=== PATIENT | male | born 1970 | race Hispanic/Latino ===

== ENCOUNTER 2017-03-26 17:19 | Observation (INO) | payer OTHER ==
[2017-03-26] MEDS ORDERED: Sodium Chloride 0.9% 1,000 ML IV STA ×2 (17:49→22:19)
--- NOTE | 2017-03-26 17:54 | ED PDOC ---
HPI: Chest Pain Time Seen by Provider: 03/26/17 17:36 Chief Complaint (Nursing): Palpitations Chief Complaint (Provider): Chest pain History Per: Patient History/Exam Limitations: no limitations Onset/Duration Of Symptoms: Days (today 3pm) Current Symptoms Are (Timing): Still Present Additional Complaint(s): Pt. with left upper chest pain going to shoulder with palpitations. No numbness , tingles, weakness. Started while at work. Went home and took an ASA. Currently no pain. No dyspnea. No leg pain, long distance travel, or hormone use. No drugs or etoh. Drinks coffee 1-2 cups in the morning. Past Medical History Reviewed: Nursing Documentation, Vital Signs Vital Signs: Last Vital Signs Temp 98.1 F 03/26/17 17:31 Pulse 136 H 03/26/17 17:31 Resp 19 03/26/17 17:31 BP 162/103 H 03/26/17 17:31 Pulse Ox 100 03/26/17 17:55 - Medical History PMH: No Chronic Diseases - Surgical History Surgical History: No Surg Hx - Family History Family History: States: Unknown Family Hx - Allergies Allergies/Adverse Reactions: Allergies Allergy/AdvReac Type Severity Reaction Status Date / Time No Known Allergies Allergy Verified 03/26/17 17:35 Review of Systems ROS Statement: Except As Marked, All Systems Reviewed And Found Negative Cardiovascular: Positive for: Chest Pain, Palpitations Physical Exam - Reviewed Nursing Documentation Reviewed: Yes Vital Signs Reviewed: Yes - Physical Exam Appears: Positive for: Non-toxic, No Acute Distress Head Exam: Positive for: ATRAUMATIC, NORMAL INSPECTION, NORMOCEPHALIC Skin: Positive for: Normal Color, Warm, DRY Eye Exam: Positive for: EOMI, Normal appearance, PERRL ENT: Positive for: Normal ENT Inspection Neck: Positive for: Normal, Painless ROM Cardiovascular/Chest: Positive for: Regular Rate, Rhythm, Chest Non Tender. Negative for: Edema Respiratory: Positive for: CNT, Normal Breath Sounds Gastrointestinal/Abdominal: Positive for: Normal Exam, Bowel Sounds, Soft. Negative for: Tenderness Back: Positive for: Normal Inspection. Negative for: L CVA Tenderness, R CVA Tenderness Extremity: Positive for: Normal ROM. Negative for: Tenderness, Pedal Edema Neurologic/Psych: Positive for: Alert, Oriented - Laboratory Results Result Diagrams: 02/07/18 18:14 - ECG ECG: Positive for: Interpreted By Me, Viewed By Me ECG Rhythm: Positive for: Normal QRS, Sinus Tachycardia O2 Sat by Pulse Oximetry: 100 Pulse Ox Interpretation: Normal - Radiology X-Ray: Read By Radiologist X-Ray Interpretation: No Acute Disease - Progress ED Course And Treament: 1842: Stable. AAOx3. Dr. Pederson to take over care. Fu on labs. Disposition - Clinical Impression Clinical Impression: Palpitation, Chest pain - Patient ED Disposition Is Patient to be Admitted: Transfer of Care - Disposition Disposition Time: 18:43 Condition: STABLE Forms: [employer] ([place]) Patient Signed Over To: Sin Pederson
--- NOTE | 2017-03-26 18:25 | RAD ---
HISTORY: chest pain COMPARISON: No prior. FINDINGS: LUNGS: No active pulmonary disease. PLEURA: No significant pleural effusion identified, no pneumothorax apparent. CARDIOVASCULAR: Normal. OSSEOUS STRUCTURES: No significant abnormalities. VISUALIZED UPPER ABDOMEN: Normal. OTHER FINDINGS: None. IMPRESSION: No active disease.
[2017-03-26 18:44] LABS: ALB/GLOB RATIO 1.2 (1.0-2.1); ALBUMIN 4.6 g/dL (3.5-5.0); ALT/SGPT 79 U/L (21-72); AST/SGOT 46 U/L (17-59); BLOOD UREA NITROGEN 11 mg/dl (9-20); CALCIUM 9.3 mg/dL (8.4-10.2); GFR AFRICAN-AMERICAN > 60; GFR NON-AFRICAN AMERICAN > 60
[2017-03-26 18:46] LABS: BASO # 0.1 K/uL (0.0-0.2); BASO % 0.6 % (0.0-2.0); EOS # 0.1 K/uL (0.0-0.7); EOS % 1.1 % (0.0-4.0); HEMOGLOBIN 15.9 g/dL (12.0-18.0); LYMPH # 3.1 K/uL (1.0-4.3); LYMPH % 29.1 % (20.0-40.0); MEAN CELL VOLUME 88.9 fl (80.0-94.0); MEAN CORPUSCULAR HEMOGLOBIN 30.4 pg (27.0-31.0); MEAN CORPUSCULAR HGB CONC 34.2 g/dL (33.0-37.0); MEAN PLATELET VOLUME 9.3 fl (7.2-11.7); MONO # 0.6 K/uL (0.0-0.8); NEUT # 6.7 K/uL (1.8-7.0); NEUT % 63.2 % (50.0-75.0); NRBC % 0.1 % (0.0-0.0); RBC 5.24 Mil/uL (4.40-5.90); WHITE BLOOD COUNT 10.6 K/uL (4.8-10.8)
[2017-03-26 18:50] LABS: INR 0.9 (0.9-1.2); PARTIAL THROMBOPLASTIN TIME 28.5 Seconds (25.6-37.1); PROTHROMBIN TIME 10.4 Seconds (9.8-13.1)
[2017-03-26] MEDS ORDERED: Potassium Chloride 20 mEq ER Tab PO ONE (18:53)
[2017-03-26] MEDS ORDERED: Iodixanol 320 MG/ML 100 ML BOTTLE IV ONE (19:34)
[2017-03-26] MEDS ORDERED: Sodium Chloride 0.9% 50 ML IV ONE (19:34)
[2017-03-26 19:57] LABS: BARBITURATES, UR NEGATIVE (NEGATIVE); BENZODIAZEPINES, UR NEGATIVE (NEGATIVE); OPIATES, UR NEGATIVE (NEGATIVE); PHENCYCLIDINE, UR NEGATIVE (NEGATIVE)
--- NOTE | 2017-03-26 21:30 | ED PDOC ---
- Laboratory Results Result Diagrams: 03/26/17 18:14 03/27/17 02:07 - ECG O2 Sat by Pulse Oximetry: 100 (RA) Pulse Ox Interpretation: Normal Medical Decision Making Medical Decision Making: Time: 19:00 Patient signed out to me by CT scan Time: 21:50 FINDINGS: Limitations: Suboptimal opacification of the pulmonary arteries. Pulmonary arteries: No central or segmental pulmonary embolism. Remaining pulmonary arteries are not sufficiently opacified to evaluate for PE. Aorta: No acute findings. No thoracic aortic aneurysm. Lungs: Mild interstitial infiltrates in the lower lungs which may be due to edema. Atelectasis posterior lungs. No mass. Pleural space: Unremarkable. No significant effusion. No pneumothorax. Heart: Unremarkable. No cardiomegaly. No significant pericardial effusion. No evidence of RV dysfunction. Bones/joints: No acute fracture. No dislocation. Soft tissues: Unremarkable. Lymph nodes: Unremarkable. No enlarged lymph nodes. IMPRESSION: 1. No central or segmental pulmonary embolism. Remaining pulmonary arteries are not sufficiently opacified to evaluate for PE. 2. Mild interstitial infiltrates in the lower lungs which may be due to edema. 2200 Patient is still persistently tachycardic despite IVF. Will continue IV hydration, benzos for possible anxiety and admit for tachycardia. Documented by Julius Rainey acting as a scribe for Sin Pederson MD. All medical record entries made by the Scribe were at my direction and personally dictated by me. I have reviewed the chart and agree that the record accurately reflects my personal performance of the history, physical exam, medical decision making, and the department course for this patient. I have also personally directed, reviewed, and agree with the discharge instructions and disposition. Disposition - Clinical Impression Clinical Impression: Palpitation, Chest pain, Tachycardia - POA Present On Arrival: None - Disposition Disposition: Hospitalized as Observation Patient Disposition Time: 22:00 Condition: STABLE
[2017-03-26] MEDS ORDERED: Sodium Chloride 0.9% 1,000 ML IV SCH (23:45)
[2017-03-27 02:36] LABS: ALB/GLOB RATIO 1.1 (1.0-2.1); ALT/SGPT 68 U/L (21-72); AST/SGOT 34 U/L (17-59); BLOOD UREA NITROGEN 10 mg/dl (9-20); CALCIUM 8.7 mg/dL (8.4-10.2); GFR AFRICAN-AMERICAN > 60; GFR NON-AFRICAN AMERICAN > 60
[2017-03-27 06:23] LABS: HEMOGLOBIN 14.5 g/dL (12.0-18.0); MEAN CELL VOLUME 88.6 fl (80.0-94.0); MEAN CORPUSCULAR HEMOGLOBIN 30.3 pg (27.0-31.0); MEAN CORPUSCULAR HGB CONC 34.2 g/dL (33.0-37.0); RBC 4.78 Mil/uL (4.40-5.90); RED CELL DISTRIBUTION WIDTH 13.7 % (11.5-14.5); WHITE BLOOD COUNT 11.1 K/uL (4.8-10.8)
--- NOTE | 2017-03-27 09:19 | CT ---
PROCEDURE: CT Chest with contrast (Pulmonary Angiogram) HISTORY: chest pain COMPARISON: None available. TECHNIQUE: Axial computed tomography images were obtained of the chest in the pulmonary arterial phase of enhancement. Coronal and sagittal reformatted images were created and reviewed. Intravenous contrast dose: 75 mL Visipaque 320 Radiation dose: Total exam DLP = 417.9 mGy-cm. This CT exam was performed using one or more of the following dose reduction techniques: Automated exposure control, adjustment of the mA and/or kV according to patient size, and/or use of iterative reconstruction technique. FINDINGS: PULMONARY ARTERIES: Suboptimal opacification. No central pulmonary embolism. AORTA: No acute findings. No thoracic aortic aneurysm. LUNGS: Bibasilar atelectasis. Right middle lobe 4 mm nodule (series 5, image 43). No mass or pulmonary consolidation. PLEURAL SPACES: Unremarkable. No effusion or pneumothorax. HEART: Unremarkable. No cardiomegaly. No significant pericardial effusion. LYMPH NODES: No lymphadenopathy. BONES, CHEST WALL: Unremarkable. No fracture or destructive lesion OTHER FINDINGS: Unremarkable. IMPRESSION: Suboptimal opacification of the pulmonary arteries. No central pulmonary embolus.
[2017-03-27] MEDS: Pantoprazole 40 mg EC Tab PO SCH (09:22)
[2017-03-27] MEDS: Enoxaparin 40 mg Syringe SC SCH (09:22)
--- NOTE | 2017-03-27 11:24 | CARD ---
APPROVED REPORT EKG Measurement Heart [id number] <Conclusion> Sinus tachycardia Otherwise normal ECG
--- NOTE | 2017-03-27 12:36 | CARD ---
APPROVED REPORT EXAM: Two-dimensional and M-mode echocardiogram with Doppler and color Doppler. Other Information Quality : AverageRhythm : Tachycardia INDICATION Abnormal EKG/Arrhythmia 2D DIMENSIONS IVSd1.09 (0.7-1.1cm)LVDd4.37 (3.9-5.9cm) LVOT Diameter2.06 (1.8-2.4cm)PWd1.02 (0.7-1.1cm) IVSs1.40 (0.8-1.2cm)LVDs3.17 (2.5-4.0cm) FS (%) 27.5 %PWs1.18 (0.8-1.2cm) M-Mode DIMENSIONS Left Atrium (MM)4.06 (2.5-4.0cm)IVSd0.71 (0.7-1.1cm) Aortic Root3.44 (2.2-3.7cm)LVDd5.24 (4.0-5.6cm) Aortic Cusp Exc.2.32 (1.5-2.0cm)PWd1.00 (0.7-1.1cm) IVSs1.74 cmFS (%) 48 % LVDs2.71 (2.0-3.8cm)PWs1.21 cm Mitral Valve E/A ratio0.0 TDI E/Lateral E'0.0E/Medial E'0.0 Pulmonary Valve PV Peak Alzfofge56.6cm/s LEFT VENTRICLE The left ventricle is normal size. There is normal left ventricular wall thickness. The left ventricular function is normal. The left ventricular ejection fraction is within the normal range. The Ejection Fraction is 60-65%. There is normal LV segmental wall motion. The left ventricular diastolic function is normal. RIGHT VENTRICLE The right ventricle is normal size. The right ventricular systolic function is normal. ATRIA The left atrium size is normal. The right atrium size is normal. AORTIC VALVE The aortic valve is normal in structure. No aortic regurgitation is present. There is no aortic valvular stenosis. MITRAL VALVE The mitral valve is normal in structure. There is no mitral valve stenosis. There is no mitral valve regurgitation noted. TRICUSPID VALVE The tricuspid valve is normal in structure. There is no tricuspid valve regurgitation noted. There is no tricuspid valve stenosis. PULMONIC VALVE The pulmonary valve is normal in structure. There is no pulmonic valvular regurgitation. GREAT VESSELS The aortic root is normal in size. The IVC is normal in size and collapses >50% with inspiration. PERICARDIAL EFFUSION The pericardium appears normal. <Conclusion> The left ventricle is normal size. The left ventricular function is normal. The left ventricular ejection fraction is within the normal range. The Ejection Fraction is 60-65%.
--- NOTE | 2017-03-27 17:25 | CP.PCM.CON ---
History of Present Illness - History of Present Illness History of Present Illness: 46 YO WITH 30 MIN OF CHEST PRESSURE YESTERDAY. HE DIDNT NOTICE ANY EXAC OR RELIEVING FACTORS. PAIN WENT AWAY ON ITS OWN. NO SOB, NO RADIATION, NO N/V, NO F/C/D/C, NO PALP, NO DIZZINESS, NO FAM HX OF SCD. NO PERSONAL HX OF ARRYTHMIAS. PT STATES HE IS OUT OF SHAPE AND DOES GET MILD GUIDRY WHEN AMBULATING. HE ALSO ADMITS TO INCREASED STRESS AT WORK. PTS CP WAS 4/10 AND HAS NOT RETURNED. HE HAS BEEN TACHYCARDIC ON TELE SINCE ADMISSION. Review of Systems - Constitutional Constitutional: As Per HPI. absent: Anorexia, Chills, Daytime Sleepiness, Excessive Sweating, Fatigue, Fever, Frequent Falls, Headache, Increased Appetite , Lethargy, Malaise, Night Sweats, Snoring, Sleep Apnea, Weight Gain, Weight Loss, Weakness, Other - EENT Eyes: As Per HPI. absent: Blind Spots, Blurred Vision, Change in Vision, Decreased Night Vision, Diplopia, Discharge, Dry Eye, Exophthalmos, Floaters, Irritation, Itchy Eyes, Loss of Peripheral Vision, Pain, Photophobia, Requires Corrective Lenses, Sees Flashes, Spots in Vision, Tunnel Vision, Other Visual Disturbances, Loss of Vision, Other Ears: As Per HPI. absent: Decreased Hearing, Ear Discharge, Ear Pain, Tinnitus , Abnormal Hearing, Disequilibrium, Dizziness, Other Nose/Mouth/Throat: As Per HPI. absent: Epistaxis, Nasal Congestion, Nasal Discharge, Nasal Obstruction, Nasal Trauma, Nose Pain, Post Nasal Drip, Sinus Pain, Sinus Pressure, Bleeding Gums, Change in Voice, Dental Pain, Dry Mouth, Dysphagia, Halitosis, Hoarsness, Lip Swelling, Mouth Lesions, Mouth Pain, Odynophagia, Sore Throat, Throat Swelling, Tongue Swelling, Facial Pain, Neck Pain, Neck Mass, Other - Cardiovascular Cardiovascular: As Per HPI, Chest Pain at Rest, Dyspnea on Exertion, Rapid Heart Rate. absent: Acrocyanosis, Chest Pain, Chest Pain with Activity, Claudication, Diaphoresis, Dyspnea, Edema, Irregular Heart Rhythm, Pain Radiating to Arm/Neck/Jaw, Leg Edema, Leg Ulcers, Lightheadedness, Orthopnea, Palpitations, Paroxysmal Nocturnal Dyspnea, Pedal Edema, Radiating Pain, Slow Heart Rate, Syncope, Other - Respiratory Respiratory: As Per HPI. absent: Cough, Dyspnea, Hemoptysis, Dyspnea on Exertion, Wheezing, Snoring, Stridor, Pain on Inspiration, Chest Congestion, Excessive Mucous Production, Change in Mucous Color, Pain with Coughing, Other - Gastrointestinal Gastrointestinal: As Per HPI. absent: Abdominal Pain, Belching, Bloating, Change in Bowel Habits, Change in Stool Character, Coffee Ground Emesis, Constipation, Cramping, Diarrhea, Dyspepsia, Dysphagia, Early Satiety, Excessive Flatus, Fecal Incontinence, Heartburn, Hematemesis, Hematochezia, Loose Stools, Melena, Nausea, Odynophagia, Temesmus, Vomiting, Other - Genitourinary Genitourinary: As Per HPI. absent: Change in Urinary Stream, Difficulty Urinating, Dysuria, Flank Pain, Hematuria, Pyuria, Nocturia, Urinary Incontinence, Urinary Frequency, Urinary Hesitance, Urinary Urgency, Voiding Freq/Small Amts, Freq UTI, Hx Renal/Bladder Calculi, Hx /Renal Surgery, Bladder Distension, Other - Reproductive: Male Reproductive:Male: As Per HPI - Musculoskeletal Musculoskeletal: As Per HPI. absent: Abnormal Gait, Arthralgias, Atrophy, Back Pain, Deformity, Joint Swelling, Limited Range of Motion, Loss of Height, Muscle Cramps, Muscle Weakness, Myalgias, Neck Pain, Numbness, Radiating Pain into Limb, Stiffness, Tingling, Other - Integumentary Integumentary: As Per HPI. absent: Acne, Alopecia, Bleeding Lesions, Change in Hair, Change in Nails, Change in Pigmentation, Changing Lesions, Dry Skin, Erythema, Furuncle, Hirsutism, Lesions, New Lesions, Non-Healing Lesions, Photosensitivity, Pruritus, Rash, Skin Pain, Skin Ulcer, Sores, Striae, Swelling , Unusual Bruising, Wounds, Jaundice, Other Past Patient History - Infectious Disease Hx of Infectious Diseases: None - Past Medical History & Family History Past Medical History?: No - Past Social History Smoking Status: Never Smoked Chewing Tobacco Use: No Cigar Use: No Alcohol: Occasional Drugs: Denies Home Situation {Lives}: With Family Domestic Violence: Negative - CARDIAC Hx Cardiac Disorders: No - PULMONARY Hx Respiratory Disorders: No - NEUROLOGICAL Hx Neurological Disorder: No - HEENT Hx HEENT Problems: No - RENAL Hx Chronic Kidney Disease: No - ENDOCRINE/METABOLIC Hx Endocrine Disorders: No - HEMATOLOGICAL/ONCOLOGICAL Hx Blood Disorders: No - INTEGUMENTARY Hx Dermatological Problems: No - MUSCULOSKELETAL/RHEUMATOLOGICAL Hx Falls: No - GENITOURINARY/GYNECOLOGICAL Hx Genitourinary Disorders: No - PSYCHIATRIC Hx Substance Use: No - SURGICAL HISTORY Hx Surgeries: No - ANESTHESIA Hx Anesthesia: No Hx Anesthesia Reactions: No Hx Malignant Hyperthermia: No Has any member of the family had a problem w/ anesthesia?: No Meds Allergies/Adverse Reactions: Allergies Allergy/AdvReac Type Severity Reaction Status Date / Time No Known Allergies Allergy Verified 03/26/17 17:35 - Medications Medications: Current Medications Enoxaparin Sodium (Lovenox) 40 mg SC DAILY [facility] PRN Reason: Protocol Last Admin: 03/27/17 09:22 Dose: 40 mg Pantoprazole Sodium (Protonix Ec Tab) 40 mg PO DAILY [facility] Last Admin: 03/27/17 09:22 Dose: 40 mg Physical Exam - Constitutional Appears: Non-toxic - Head Exam Head Exam: ATRAUMATIC, NORMAL INSPECTION, NORMOCEPHALIC - Eye Exam Eye Exam: EOMI, Normal appearance, PERRL. absent: Conjunctival injection, Nystagmus, Periorbital swelling, Periorbital tenderness, Scleral icterus Pupil Exam: NORMAL ACCOMODATION, PERRL. absent: Fixed, Irregular, Miosis, Mydriatic, Unequal - ENT Exam ENT Exam: Mucous Membranes Moist, Normal Exam. absent: Mucous Membranes Dry, Normal External Ear Exam, Normal Oropharynx, TM's Normal Bilaterally - Neck Exam Neck exam: Positive for: Normal Inspection. Negative for: Full Rom, Lymphadenopathy, Meningismus, Tenderness, Thyromegaly - Respiratory Exam Respiratory Exam: Clear to Auscultation Bilateral, NORMAL BREATHING PATTERN. absent: Accessory Muscle Use, Chest Wall Tenderness, Decreased Breath Sounds, Prolonged Expiratory Phase, Rales, Rhonchi, Wheezes, Respiratory Distress, Stridor - Cardiovascular Exam Cardiovascular Exam: Tachycardia, REGULAR RHYTHM, +S1, +S2. absent: Bradycardia , Clicks, Diastolic murmur, Gallop, Irregular Rhythm, JVD, RRR, Rubs, +S4, Systolic Murmur - GI/Abdominal Exam GI & Abdominal Exam: Normal Bowel Sounds, Soft. absent: Bruit, Diminished Bowel Sounds, Distended, Firm, Guarding, Hernia, Hyperactive Bowel Sounds, Hypoactive Bowel Sounds, Mass, Organomegaly, Pulsatile Mass, Rebound, Rigid, Tenderness - Rectal Exam Rectal Exam: Deferred - Extremities Exam Extremities exam: Positive for: normal inspection. Negative for: calf tenderness, full ROM, joint swelling, normal capillary refill, pedal edema, tenderness, pedal pulses present - Back Exam Back exam: NORMAL INSPECTION. absent: CVA tenderness (L), CVA tenderness (R), FULL ROM, muscle spasm, paraspinal tenderness, rash noted, tenderness, vertebral tenderness - Neurological Exam Neurological exam: Alert, CN II-XII Intact, Normal Gait, Oriented x3, Reflexes Normal - Psychiatric Exam Psychiatric exam: Normal Affect, Normal Mood - Skin Skin Exam: Dry, Intact, Normal Color, Warm Results - Vital Signs Recent Vital Signs: Last Vital Signs Temp 99.7 F H 03/27/17 15:35 Pulse 122 H 03/27/17 15:35 Resp 20 03/27/17 15:35 BP 144/86 03/27/17 15:35 Pulse Ox 98 03/27/17 15:35 - Labs Result Diagrams: 03/27/17 05:50 03/27/17 02:07 Labs: Laboratory Results - last 24 hr 03/26/17 03/26/17 03/26/17 18:14 18:14 18:14 WBC 10.6 RBC 5.24 Hgb 15.9 Hct 46.5 MCV 88.9 MCH 30.4 MCHC 34.2 RDW 14.0 Plt Count 236 MPV 9.3 Neut % (Auto) 63.2 Lymph % (Auto) 29.1 [place] % (Auto) 6.0 Eos % (Auto) 1.1 Baso % (Auto) 0.6 Neut # (Auto) 6.7 Lymph # (Auto) 3.1 [place] # (Auto) 0.6 Eos # (Auto) 0.1 Baso # (Auto) 0.1 PT 10.4 INR 0.9 APTT 28.5 D-Dimer, Quantitative 92 Sodium 143 Potassium 3.3 L Chloride 104 Carbon Dioxide 26 Anion Gap 16 BUN 11 Creatinine 1.0 Est GFR ( Amer) > 60 Est GFR (Non-Af Amer) > 60 Random Glucose 118 H Calcium 9.3 Total Bilirubin 0.4 AST 46 ALT 79 H Alkaline Phosphatase 71 Troponin I < 0.0120 Total Protein 8.4 H Albumin 4.6 Globulin 3.7 Albumin/Globulin Ratio 1.2 TSH 3rd Generation Urine Opiates Screen Urine Methadone Screen Ur Barbiturates Screen Ur Phencyclidine Scrn Ur Amphetamines Screen U Benzodiazepines Scrn U Oth Cocaine Metabols U Cannabinoids Screen Alcohol, Quantitative < 10 03/26/17 03/27/17 03/27/17 19:30 02:07 05:50 WBC 11.1 H RBC 4.78 Hgb 14.5 Hct 42.3 MCV 88.6 MCH 30.3 MCHC 34.2 RDW 13.7 Plt Count 208 MPV Neut % (Auto) Lymph % (Auto) [place] % (Auto) Eos % (Auto) Baso % (Auto) Neut # (Auto) Lymph # (Auto) [place] # (Auto) Eos # (Auto) Baso # (Auto) PT INR APTT D-Dimer, Quantitative Sodium 141 Potassium 4.0 Chloride 107 Carbon Dioxide 24 Anion Gap 14 BUN 10 Creatinine 0.8 Est GFR ( Amer) > 60 Est GFR (Non-Af Amer) > 60 Random Glucose 130 H Calcium 8.7 Total Bilirubin 0.8 AST 34 ALT 68 Alkaline Phosphatase 48 Troponin I < 0.0120 Total Protein 7.5 Albumin 4.0 Globulin 3.5 Albumin/Globulin Ratio 1.1 TSH 3rd Generation 1.01 Urine Opiates Screen Negative Urine Methadone Screen Negative Ur Barbiturates Screen Negative Ur Phencyclidine Scrn Negative Ur Amphetamines Screen Negative U Benzodiazepines Scrn Negative U Oth Cocaine Metabols Negative U Cannabinoids Screen Negative Alcohol, Quantitative 03/27/17 11:20 WBC RBC Hgb Hct MCV MCH MCHC RDW Plt Count MPV Neut % (Auto) Lymph % (Auto) [place] % (Auto) Eos % (Auto) Baso % (Auto) Neut # (Auto) Lymph # (Auto) [place] # (Auto) Eos # (Auto) Baso # (Auto) PT INR APTT D-Dimer, Quantitative Sodium Potassium Chloride Carbon Dioxide Anion Gap BUN Creatinine Est GFR ( Amer) Est GFR (Non-Af Amer) Random Glucose Calcium Total Bilirubin AST ALT Alkaline Phosphatase Troponin I < 0.0120 Total Protein Albumin Globulin Albumin/Globulin Ratio TSH 3rd Generation Urine Opiates Screen Urine Methadone Screen Ur Barbiturates Screen Ur Phencyclidine Scrn Ur Amphetamines Screen U Benzodiazepines Scrn U Oth Cocaine Metabols U Cannabinoids Screen Alcohol, Quantitative - EKG Data EKG Interpreted by: Myself EKG shows normal: Sinus rhythm Rate: Tachycardia Assessment & Plan (1) Chest pain Status: Acute (2) Tachycardia Status: Acute (3) Anxiety Status: Acute (4) Physical deconditioning Status: Acute - Assessment and Plan (Free Text) Plan: GIVE NS AT 100 CC WILL HAVE PT UNDERGO EST IN AM TO EVAL CP AND CONDITIONING. CHECK LIPIDS, ESR, CRP CHECK TFTS, METANEPHRINES AVOID STIMULANTS. SX MAY BE SECONDARY TO ANXIETY. 75 MIN TOTAL CARE TIME
[2017-03-27] MEDS ORDERED: Sodium Chloride 0.9% 1,000 ML IV SCH (18:45)
--- NOTE | 2017-03-28 00:11 | CP.PCM.HP ---
History of Present Illness - History of Present Illness History of Present Illness: CC: Chest pain A 46 year old male with no significant pmhx presented to ED complaining of left sided pressure like chest pain 5/10 radiating to left shoulder. Denies any associated diaphoresis, nausea, vomiting, sob or light headedness. Admits to having palpitations. Had a similar episode one year back, was not worked up for any cardiac etiology. Pt states that when he got home after the CP, he took an ASA, but when he came to the ER the CP had subsided. In the ED, pt was worked up with CT chest for PE and PE was ruled out. Pt was admitted for CP to r/o ACS and persistent tachycardia of unknown etiology. Present on Admission - Present on Admission Any Indicators Present on Admission: No Review of Systems - Review of Systems All systems: reviewed and no additional remarkable complaints except (as per HPI ) - Constitutional Constitutional: As Per HPI. absent: Anorexia, Chills, Daytime Sleepiness, Excessive Sweating, Fatigue, Fever, Frequent Falls, Headache, Increased Appetite , Lethargy, Malaise, Night Sweats, Snoring, Sleep Apnea, Weight Gain, Weight Loss, Weakness, Other - EENT Eyes: As Per HPI - Cardiovascular Cardiovascular: As Per HPI - Respiratory Respiratory: As Per HPI - Gastrointestinal Gastrointestinal: As Per HPI - Musculoskeletal Musculoskeletal: As Per HPI - Integumentary Integumentary: As Per HPI - Neurological Neurological: As Per HPI - Psychiatric Psychiatric: As Per HPI Past Patient History - Infectious Disease Hx of Infectious Diseases: None - Past Medical History & Family History Past Medical History?: No - Past Social History Smoking Status: Never Smoked Chewing Tobacco Use: No Cigar Use: No Alcohol: Occasional Drugs: Denies Home Situation {Lives}: With Family Domestic Violence: Negative - CARDIAC Hx Cardiac Disorders: No - PULMONARY Hx Respiratory Disorders: No - NEUROLOGICAL Hx Neurological Disorder: No - HEENT Hx HEENT Problems: No - RENAL Hx Chronic Kidney Disease: No - ENDOCRINE/METABOLIC Hx Endocrine Disorders: No - HEMATOLOGICAL/ONCOLOGICAL Hx Blood Disorders: No - INTEGUMENTARY Hx Dermatological Problems: No - MUSCULOSKELETAL/RHEUMATOLOGICAL Hx Falls: No - GENITOURINARY/GYNECOLOGICAL Hx Genitourinary Disorders: No - PSYCHIATRIC Hx Substance Use: No - SURGICAL HISTORY Hx Surgeries: No - ANESTHESIA Hx Anesthesia: No Hx Anesthesia Reactions: No Hx Malignant Hyperthermia: No Has any member of the family had a problem w/ anesthesia?: No Meds Allergies/Adverse Reactions: Allergies Allergy/AdvReac Type Severity Reaction Status Date / Time No Known Allergies Allergy Verified 03/26/17 17:35 Physical Exam - Constitutional Appears: Well, No Acute Distress - Head Exam Head Exam: ATRAUMATIC, NORMAL INSPECTION, NORMOCEPHALIC - Eye Exam Eye Exam: Normal appearance, PERRL Pupil Exam: NORMAL ACCOMODATION - ENT Exam ENT Exam: Mucous Membranes Moist, Normal Exam - Neck Exam Neck exam: Positive for: Full Rom, Normal Inspection - Respiratory Exam Respiratory Exam: Clear to Auscultation Bilateral, NORMAL BREATHING PATTERN - Cardiovascular Exam Cardiovascular Exam: Tachycardia (at 120 beats/min), REGULAR RHYTHM, +S1, +S2 - GI/Abdominal Exam GI & Abdominal Exam: Normal Bowel Sounds, Soft - Rectal Exam Rectal Exam: Deferred - Extremities Exam Extremities exam: Positive for: full ROM, normal capillary refill, normal inspection, pedal pulses present - Back Exam Back exam: FULL ROM, NORMAL INSPECTION - Neurological Exam Neurological exam: Alert, CN II-XII Intact, Oriented x3 - Psychiatric Exam Psychiatric exam: Normal Affect, Normal Mood - Skin Skin Exam: Dry, Intact, Normal Color, Warm Results - Vital Signs Recent Vital Signs: Last Vital Signs Temp 98.6 F 03/27/17 19:18 Pulse 106 H 03/27/17 21:00 Resp 20 03/27/17 19:18 BP 140/83 03/27/17 19:18 Pulse Ox 98 03/27/17 19:18 - Labs Result Diagrams: 03/28/17 04:59 03/28/17 04:59 Labs: Laboratory Results - last 24 hr 03/27/17 03/27/17 03/27/17 02:07 05:50 11:20 WBC 11.1 H RBC 4.78 Hgb 14.5 Hct 42.3 MCV 88.6 MCH 30.3 MCHC 34.2 RDW 13.7 Plt Count 208 Sodium 141 Potassium 4.0 Chloride 107 Carbon Dioxide 24 Anion Gap 14 BUN 10 Creatinine 0.8 Est GFR ( Amer) > 60 Est GFR (Non-Af Amer) > 60 Random Glucose 130 H Calcium 8.7 Total Bilirubin 0.8 AST 34 ALT 68 Alkaline Phosphatase 48 Troponin I < 0.0120 < 0.0120 Total Protein 7.5 Albumin 4.0 Globulin 3.5 Albumin/Globulin Ratio 1.1 Free T4 Total T3 TSH 3rd Generation 1.01 03/27/17 03/27/17 17:29 17:29 WBC RBC Hgb Hct MCV MCH MCHC RDW Plt Count Sodium Potassium Chloride Carbon Dioxide Anion Gap BUN Creatinine Est GFR ( Amer) Est GFR (Non-Af Amer) Random Glucose Calcium Total Bilirubin AST ALT Alkaline Phosphatase Troponin I Total Protein Albumin Globulin Albumin/Globulin Ratio Free T4 1.03 Total T3 1.11 L TSH 3rd Generation - Imaging and Cardiology Chest x-ray Additional comment: HISTORY: chest pain COMPARISON: No prior. FINDINGS: LUNGS: No active pulmonary disease. PLEURA: No significant pleural effusion identified, no pneumothorax apparent. CARDIOVASCULAR: Normal. OSSEOUS STRUCTURES: No significant abnormalities. VISUALIZED UPPER ABDOMEN: Normal. OTHER FINDINGS: None. IMPRESSION: No active disease. CT scan - chest Additional comment: PROCEDURE: CT Chest with contrast (Pulmonary Angiogram) HISTORY: chest pain COMPARISON: None available. TECHNIQUE: Axial computed tomography images were obtained of the chest in the pulmonary arterial phase of enhancement. Coronal and sagittal reformatted images were created and reviewed. Intravenous contrast dose: 75 mL Visipaque 320 Radiation dose: Total exam DLP = 417.9 mGy-cm. This CT exam was performed using one or more of the following dose reduction techniques: Automated exposure control, adjustment of the mA and/or kV according to patient size, and/or use of iterative reconstruction technique. FINDINGS: PULMONARY ARTERIES: Suboptimal opacification. No central pulmonary embolism. AORTA: No acute findings. No thoracic aortic aneurysm. LUNGS: Bibasilar atelectasis. Right middle lobe 4 mm nodule (series 5, image 43). No mass or pulmonary consolidation. PLEURAL SPACES: Unremarkable. No effusion or pneumothorax. HEART: Unremarkable. No cardiomegaly. No significant pericardial effusion. LYMPH NODES: No lymphadenopathy. BONES, CHEST WALL: Unremarkable. No fracture or destructive lesion OTHER FINDINGS: Unremarkable. IMPRESSION: Suboptimal opacification of the pulmonary arteries. No central pulmonary embolus. Assessment & Plan (1) Tachycardia Assessment and Plan: Cxr, no active disease EKG with ST at 133 [address] PE protocol negative Cardiology consult Status: Acute Priority: High (2) Left sided chest pain Assessment and Plan: Left sided chest pain resolved when pt got to ED R/o ACS Echo Cardiology consult Stress test Status: Acute Priority: High (3) Hypokalemia Assessment and Plan: Repeat labs monitor for any EKG changes Status: Acute Priority: High - Assessment and Plan (Free Text) Assessment: 46 year old male with no significant pmhx presents with left sided chest pain and persistent tachycardia Plan: PE ruled out R/o ACS Echo cardiology consult stress test monitor for any EKG changes f/u labs DVT prophylaxis
[2017-03-28 05:44] VITALS: O2SAT 98
[2017-03-28 05:57] LABS: BASO % 0.4 % (0.0-2.0); EOS # 0.1 K/uL (0.0-0.7); EOS % 0.6 % (0.0-4.0); HEMOGLOBIN 14.2 g/dL (12.0-18.0); LYMPH # 2.7 K/uL (1.0-4.3); LYMPH % 31.3 % (20.0-40.0); MEAN CELL VOLUME 88.7 fl (80.0-94.0); MEAN CORPUSCULAR HEMOGLOBIN 30.8 pg (27.0-31.0); MEAN CORPUSCULAR HGB CONC 34.8 g/dL (33.0-37.0); MONO # 0.6 K/uL (0.0-0.8); MONO % 6.9 % (0.0-10.0); NEUT # 5.3 K/uL (1.8-7.0); NEUT % 60.8 % (50.0-75.0); NRBC % 0.1 % (0.0-0.0); RBC 4.61 Mil/uL (4.40-5.90); RED CELL DISTRIBUTION WIDTH 13.6 % (11.5-14.5); WHITE BLOOD COUNT 8.7 K/uL (4.8-10.8)
[2017-03-28 06:13] LABS: LDL CHOLESTEROL 114 mg/dL (0-129)
[2017-03-28 06:27] LABS: ALB/GLOB RATIO 1.2 (1.0-2.1); ALT/SGPT 54 U/L (21-72); AST/SGOT 26 U/L (17-59); BLOOD UREA NITROGEN 9 mg/dl (9-20); CALCIUM 9.2 mg/dL (8.4-10.2); GFR AFRICAN-AMERICAN > 60; GFR NON-AFRICAN AMERICAN > 60; HDL CHOLESTEROL 32 MG/DL (30-70); MAGNESIUM 2.1 MG/DL (1.6-2.3)
[2017-03-28] MEDS: Enoxaparin 40 mg Syringe SC SCH (11:36)
[2017-03-28] MEDS: Pantoprazole 40 mg EC Tab PO SCH (11:37)
[2017-03-28 13:05] VITALS: RESP 20
[2017-03-28 13:19] VITALS: PULSE 87; TEMP 98.2
[2017-03-28 13:20] VITALS: BP 125/81
--- NOTE | 2017-03-28 18:07 | CP.PCM.PN ---
Subjective - Date & Time of Evaluation Date of Evaluation: 03/28/17 Time of Evaluation: 18:07 Objective - Vital Signs/Intake and Output Vital Signs (last 24 hours): Temp Pulse Resp BP Pulse Ox 98.2 F 87 20 125/81 98 03/28/17 12:41 03/28/17 12:41 03/28/17 12:00 03/28/17 13:00 03/28/17 12:00 - Medications Medications: Current Medications Acetaminophen (Tylenol 325mg Tab) 650 mg PO Q6 PRN PRN Reason: Pain, Mild (1-3) Last Admin: 03/28/17 02:58 Dose: 650 mg Enoxaparin Sodium (Lovenox) 40 mg SC DAILY MARIA DOLORES PRN Reason: Protocol Last Admin: 03/28/17 11:36 Dose: 40 mg Pantoprazole Sodium (Protonix Ec Tab) 40 mg PO DAILY MARIA DOLORES Last Admin: 03/28/17 11:37 Dose: 40 mg - Labs Labs: 03/28/17 04:59 03/28/17 04:59 PT 10.4 Seconds (9.8-13.1) 03/26/17 18:14 INR 0.9 (0.9-1.2) 03/26/17 18:14 APTT 28.5 Seconds (25.6-37.1) 03/26/17 18:14 Assessment and Plan (1) Chest pain Status: Acute (2) Tachycardia Status: Acute (3) Anxiety Status: Acute (4) Physical deconditioning Status: Acute - Assessment and Plan (Free Text) Plan: exercise stress test was asymptomatic, without ekg changes. revealed diminished exercise tolerance. pt is deconditioned. he is stable for d/c from cardiac prespective.
--- NOTE | 2017-03-28 22:44 | CARD ---
APPROVED REPORT Protocol: JASE Test Type: Treadmill Stress Test Attending Physician: Dr. Sexton Referring Physician: Dr. Garcia Technologist: Montrell Short Test Indications: chest pain Medications: Lovenox 40mg, Pantoprazole 40mg Medical History: Family Hx. Target HR: 173 bpm Resting ECG: normal Resting Heart Rate: 117 bpm Resting Blood Pressure: 149/84mmHg submaximum (85%): 147 bpm TEST SUMMARY [id number]. [id number]/[id number]. PRETESTHYPERV.00:[id number]/84.0. PRETESTWARM-UP11:[id number]/84.0. EXERCISESTAGE 103:[id number]/82.0. EXERCISESTAGE 203:[id number]/80.0. [id number]/80.0. POST EXERCISE Reason for Termination: Target heart rate achieved Target HR: NoMax HR: 148 bpm86% of Maximum Predicted HR: 173 bpm Exercise duration: 2 Stage06:00 min:secExercise capacity: 7.0METs Max Blood Pressure: 196/80mmHg Blood Pressure response to exercise: resting hypertension - exaggerated response Heart Rate response to exercise: appropriate Chest Pain: NononeAngina index: 0 Arrhythmia: Nonone ST Change: NononeDeviation: 0 mm INTERPRETATION Stress EKG Conclusion: Normal stress test
--- NOTE | 2017-03-29 21:17 | CP.PCM.DIS ---
Provider - Provider Date of Admission: 03/26/17 21:28 Attending physician: Jewels Vasquez MD Time Spent in preparation of Discharge (in minutes): 30 Diagnosis - Discharge Diagnosis (1) Tachycardia Status: Acute Priority: High (2) Left sided chest pain Status: Acute Priority: High (3) Hypokalemia Status: Acute Priority: High Hospital Course - Lab Results Lab Results: Most Recent Lab Values WBC 8.7 K/uL (4.8-10.8) 03/28/17 04:59 RBC 4.61 Mil/uL (4.40-5.90) 03/28/17 04:59 Hgb 14.2 g/dL (12.0-18.0) 03/28/17 04:59 Hct 40.8 % (35.0-51.0) 03/28/17 04:59 MCV 88.7 fl (80.0-94.0) 03/28/17 04:59 MCH 30.8 pg (27.0-31.0) 03/28/17 04:59 MCHC 34.8 g/dL (33.0-37.0) 03/28/17 04:59 RDW 13.6 % (11.5-14.5) 03/28/17 04:59 Plt Count 203 K/uL (130-400) 03/28/17 04:59 MPV 9.0 fl (7.2-11.7) 03/28/17 04:59 Neut % (Auto) 60.8 % (50.0-75.0) 03/28/17 04:59 Lymph % (Auto) 31.3 % (20.0-40.0) 03/28/17 04:59 [place] % (Auto) 6.9 % (0.0-10.0) 03/28/17 04:59 Eos % (Auto) 0.6 % (0.0-4.0) 03/28/17 04:59 Baso % (Auto) 0.4 % (0.0-2.0) 03/28/17 04:59 Neut # (Auto) 5.3 K/uL (1.8-7.0) 03/28/17 04:59 Lymph # (Auto) 2.7 K/uL (1.0-4.3) 02/09/18 04:59 [place] # (Auto) 0.6 K/uL (0.0-0.8) 03/28/17 04:59 Eos # (Auto) 0.1 K/uL (0.0-0.7) 03/28/17 04:59 Baso # (Auto) 0.0 K/uL (0.0-0.2) 03/28/17 04:59 ESR 31 mm/hr (0-15) H 03/28/17 04:59 PT 10.4 Seconds (9.8-13.1) 03/26/17 18:14 INR 0.9 (0.9-1.2) 03/26/17 18:14 APTT 28.5 Seconds (25.6-37.1) 03/26/17 18:14 D-Dimer, Quantitative 92 ng/mlDDU (0-230) 03/26/17 18:14 Sodium 140 mmol/l (132-148) 03/28/17 04:59 Potassium 4.0 MMOL/L (3.6-5.0) 03/28/17 04:59 Chloride 104 mmol/L (98-107) 03/28/17 04:59 Carbon Dioxide 28 mmol/L (22-30) 03/28/17 04:59 Anion Gap 12 (10-20) 03/28/17 04:59 BUN 9 mg/dl (9-20) 03/28/17 04:59 Creatinine 0.9 mg/dl (0.8-1.5) 03/28/17 04:59 Est GFR ( Amer) > 60 03/28/17 04:59 Est GFR (Non-Af Amer) > 60 03/28/17 04:59 Random Glucose 115 mg/dL (75-110) H 03/28/17 04:59 Calcium 9.2 mg/dL (8.4-10.2) 03/28/17 04:59 Magnesium 2.1 MG/DL (1.6-2.3) 03/28/17 04:59 Total Bilirubin 0.8 mg/dl (0.2-1.3) 03/28/17 04:59 AST 26 U/L (17-59) 03/28/17 04:59 ALT 54 U/L (21-72) 03/28/17 04:59 Alkaline Phosphatase 47 U/L (38-126) 03/28/17 04:59 Troponin I < 0.0120 ng/mL (0.00-0.120) 03/27/17 11:20 C-React Prot High Sens > 15.00 mg/L (1.00-3.00) H 03/28/17 04:59 Total Protein 7.4 G/DL (6.3-8.2) 03/28/17 04:59 Albumin 4.0 g/dL (3.5-5.0) 03/28/17 04:59 Globulin 3.4 gm/dL (2.2-3.9) 03/28/17 04:59 Albumin/Globulin Ratio 1.2 (1.0-2.1) 03/28/17 04:59 Triglycerides 89 mg/DL (0-149) 03/28/17 04:59 Cholesterol 184 mg/dL (0-199) 03/28/17 04:59 LDL Cholesterol Direct 114 mg/dL (0-129) 03/28/17 04:59 HDL Cholesterol 32 MG/DL (30-70) 03/28/17 04:59 Free T4 1.03 ng/dL (0.78-2.19) 03/27/17 17:29 Total T3 1.11 nmol/L (1.49-2.60) L 03/27/17 17:29 TSH 3rd Generation 0.74 mIU/ML (0.46-4.68) 03/28/17 04:59 Urine Opiates Screen Negative (NEGATIVE) 03/26/17 19:30 Urine Methadone Screen Negative (NEGATIVE) 03/26/17 19:30 Ur Barbiturates Screen Negative (NEGATIVE) 03/26/17 19:30 Ur Phencyclidine Scrn Negative (NEGATIVE) 03/26/17 19:30 Ur Amphetamines Screen Negative (NEGATIVE) 03/26/17 19:30 U Benzodiazepines Scrn Negative (NEGATIVE) 03/26/17 19:30 U Oth Cocaine Metabols Negative (NEGATIVE) 03/26/17 19:30 U Cannabinoids Screen Negative (NEGATIVE) 03/26/17 19:30 Alcohol, Quantitative < 10 mg/dl (0-10) 03/26/17 18:14 - Hospital Course Hospital Course: 46 year old male with no significant pmhx presented to the ED c/o of left sided chest pain and persistent tachycardia. The pt states after he felt the CP, he went home and took an ASA. In the ED, the CP had resolved. The pt was worked up for CT PE protocol and PE was ruled out. The pt was admitted for persistent tachycardia and to r/o ACS. The cxr was normal. The echocardiogram was normal with EF of 60-65%. The patient under went a stress test with was basically asymptomatic with no EKG changes. Tachycardia was resolved with HR maintained in the 90s. ACS was ruled out. The pt was seen by the senior lead developer and cleared to go home. The pt was discharged home with instructions for outpatient f/u. Discharge Exam - Head Exam Head Exam: ATRAUMATIC, NORMAL INSPECTION, NORMOCEPHALIC - Respiratory Exam Respiratory Exam: Clear to PA & Lateral, NORMAL BREATHING PATTERN - Cardiovascular Exam Cardiovascular Exam: REGULAR RHYTHM, +S1, +S2 - GI/Abdominal Exam GI & Abdominal Exam: Normal Bowel Sounds, Soft - Neurological Exam Neurological exam: Alert, Oriented x3 - Psychiatric Exam Psychiatric exam: Normal Affect, Normal Mood - Skin Skin Exam: Normal Color, Warm Discharge Plan - Follow Up Plan Condition: STABLE Disposition: HOME/ ROUTINE Instructions: Chest Pain (DC), Palpitations (DC) Additional Instructions: follow up with pmd in 1 week Referrals: Irwin Garcia MD [Staff Provider] -
--- NOTE | 2017-03-30 00:29 | CP.PCM.PN ---
Subjective - Date & Time of Evaluation Date of Evaluation: 03/28/17 Time of Evaluation: 16:25 Objective - Vital Signs/Intake and Output Vital Signs (last 24 hours): Temp Pulse Resp BP Pulse Ox 98.2 F 87 20 125/81 98 03/28/17 12:41 03/28/17 12:41 03/28/17 12:00 03/28/17 13:00 03/28/17 12:00 - Labs Labs: 03/28/17 04:59 03/28/17 04:59 PT 10.4 Seconds (9.8-13.1) 03/26/17 18:14 INR 0.9 (0.9-1.2) 03/26/17 18:14 APTT 28.5 Seconds (25.6-37.1) 03/26/17 18:14 Assessment and Plan (1) Tachycardia Status: Acute (2) Left sided chest pain Status: Acute (3) Hypokalemia Status: Acute
== END 2017-03-28 19:41 | disposition home or self-care (01) ==
LOC: H.ER 17:19 → H.ERHOLD 21:28 → H.TEL 03-27 10:22
PROVIDERS: ADMIT Internal Medicine; ATTEND Internal Medicine
DX: R00.0 Tachycardia, unspecified (principal); R07.9 Chest pain, unspecified; E87.6 Hypokalemia; F41.9 Anxiety disorder, unspecified
CPT/HCPCS: 36415; 71045; 71275; 80053; 80061; 80320; 80324; 80345; 80346; 80349; 80353; 80358; 80361; 83735; 83835; 83992; 84439; 84443; 84480; 84484; 85025; 85027; 85378; 85610; 85651; 85730; 86140; 93005; 93017; 93306; 96372; 99285; G0378; J1650; J2060; J7040; Q9967